=== PATIENT | male | born 1970 | race Hispanic/Latino ===

== ENCOUNTER 2019-04-21 23:29 | Emergency (ER) | payer OTHER ==
[2019-04-21 23:46] VITALS: BP 173/98
--- NOTE | 2019-04-22 00:25 | XRay Report ---
LEFT GREAT TOE 3 VIEWS INDICATION: dropped furniture pain and swelling. COMPARISON: No relevant prior imaging study available. FINDINGS: No acute fracture or dislocation is seen. No foreign bodies or soft tissue gas. IMPRESSION: 1. No acute skeletal abnormality. Signer Name: Edi Wade MD Signed: 04/22/2019 12:21 AM Workstation Name: [id number]
--- NOTE | 2019-04-22 01:52 | Emergency Department Report ---
ED Lower Extremity HPI - General Chief Complaint: Extremity Injury, Lower Stated Complaint: LEFT BIG TOE INJURY Time Seen by Provider: 04/22/19 01:47 Source: patient Mode of arrival: Ambulatory Limitations: No Limitations - History of Present Illness Initial Comments: Patient is a 48-year-old white male who presents to the ED with complaint of acute onset painful left great toe and foot pain after he accidentally dropped a heavy furniture onto his left foot. The patient states that the swelling and pain have worsened in the last the last 6 hours. Patient denies dizziness, numbness and tingling or weakness of her left foot, but again, follow her nausea and vomiting. MD Complaint: foot injury (left great toe), other (left great toe pain) -: Sudden, hour(s) (12) Injury: Foot: Left (left foot), Toes: Left (left great toe) Type of Injury: blunt (heavy furniture dropped onto the left foot) Place: home Severity: moderate Severity scale (0 -10): 6 Improves With: nothing Worsens With: weight bearing, movement, palpation Context: direct blow Associated Symptoms: swelling, able to partially bear weight. denies: snap/pop sensation, numbness, tingling, unable to bear weight - Related Data Previous Rx's Medication Instructions Recorded Last Taken Type Cyclobenzaprine [Flexeril] 10 mg PO Q8H PRN #12 tablet 04/22/19 Unknown Rx Ibuprofen [Motrin] 800 mg PO Q8HR PRN #20 tablet 04/22/19 Unknown Rx Allergies Allergy/AdvReac Type Severity Reaction Status Date / Time No Known Allergies Allergy Verified 04/21/19 23:37 ED Review of Systems ROS: Stated complaint: LEFT BIG TOE INJURY Other details as noted in HPI Constitutional: denies: chills, fever Eyes: denies: eye pain, eye discharge, vision change ENT: denies: ear pain, throat pain Respiratory: denies: cough, shortness of breath, wheezing Cardiovascular: denies: chest pain, palpitations Endocrine: no symptoms reported Gastrointestinal: denies: abdominal pain, nausea, diarrhea Genitourinary: denies: urgency, dysuria Musculoskeletal: joint swelling (left great toe), arthralgia (left great toe and foot). denies: back pain Skin: denies: rash, lesions Neurological: denies: headache, weakness, paresthesias Psychiatric: denies: anxiety, depression Hematological/Lymphatic: denies: easy bleeding, easy bruising ED Past Medical Hx - Past Medical History Previous Medical History?: No Hx Hypertension: No Hx Renal Disease: No - Surgical History Past Surgical History?: Yes Additional Surgical History: right knee. hernia - Social History Smoking Status: Never Smoker Substance Use Type: None - Medications Home Medications: Home Medications Medication Instructions Recorded Confirmed Last Taken Type Cyclobenzaprine [Flexeril] 10 mg PO Q8H PRN #12 tablet 04/22/19 Unknown Rx Ibuprofen [Motrin] 800 mg PO Q8HR PRN #20 tablet 04/22/19 Unknown Rx ED Physical Exam - General Limitations: No Limitations General appearance: alert, in no apparent distress - Head Head exam: Present: atraumatic, normocephalic - Eye Eye exam: Present: normal appearance, PERRL, EOMI. Absent: scleral icterus, conjunctival injection Pupils: Present: normal accommodation - ENT ENT exam: Present: normal exam, normal orophraynx, mucous membranes moist, TM's normal bilaterally, normal external ear exam - Neck Neck exam: Present: normal inspection, full ROM - Respiratory Respiratory exam: Present: normal lung sounds bilaterally. Absent: respiratory distress, wheezes, rales, rhonchi, chest wall tenderness, decreased breath sounds - Cardiovascular Cardiovascular Exam: Present: regular rate, normal rhythm, normal heart sounds. Absent: systolic murmur, diastolic murmur, rubs, gallop - GI/Abdominal GI/Abdominal exam: Present: soft, normal bowel sounds. Absent: tenderness, guarding, rebound, hyperactive bowel sounds, hypoactive bowel sounds, organomegaly - Rectal Rectal exam: Present: deferred - Extremities Exam Extremities exam: Present: normal inspection, tenderness (left great toe and foot), normal capillary refill, joint swelling (left great toe, left foot). Absent: pedal edema, calf tenderness - Back Exam Back exam: Present: normal inspection, full ROM. Absent: tenderness, CVA tenderness (R), CVA tenderness (L), muscle spasm, paraspinal tenderness, verteb ral tenderness - Neurological Exam Neurological exam: Present: alert, oriented X3, CN II-XII intact, normal gait, reflexes normal - Psychiatric Psychiatric exam: Present: normal affect, normal mood - Skin Skin exam: Present: warm, dry, intact, normal color. Absent: rash ED Course Vital Signs 04/21/19 23:45 Temperature 97.5 F L Pulse Rate 67 Respiratory 18 Rate Blood Pressure 173/98 [Right] O2 Sat by Pulse 100 Oximetry - Reevaluation(s) Reevaluation #1: 04/22/19 01:51 Patient is alert and oriented 3 and is not in any distress. Left great toe x- ray shows no acute fractures or subluxations. Patient was treated for pain in the ED and discharged home on pain medications and advised follow-up with his primary care physician in 5-7 days for reevaluation. Patient advised to return to the ED immediately if symptoms get worse. ED Lower Extremity MDM - Radiology Data Radiology results: report reviewed, image reviewed Left great toe x-ray: No acute fractures or subluxations - Medical Decision Making Patient is alert and oriented 3 and is not in any distress. Left great toe x- ray shows no acute fractures or subluxations. Patient was treated for pain in the ED and discharged home on pain medications and advised follow-up with his primary care physician in 5-7 days for reevaluation. Patient advised to return to the ED immediately if symptoms get worse. - Differential Diagnosis left foot contusion; sprained left great toe Critical care attestation.: If time is entered above; I have spent that time in minutes in the direct care of this critically ill patient, excluding procedure time. ED Disposition Clinical Impression: Sprain of left great toe Qualifiers: Encounter type: initial encounter Qualified Code(s): S93.502A - Unspecified sprain of left great toe, initial encounter Contusion of left foot including toes Qualifiers: Encounter type: initial encounter Qualified Code(s): S90.32XA - Contusion of left foot, initial encounter; S90.122A - Contusion of left lesser toe(s) without damage to nail, initial encounter Disposition: DC-01 TO HOME OR SELFCARE Is pt being admited?: No Does the pt Need Aspirin: No Condition: Stable Instructions: Foot Contusion (ED) Additional Instructions: Take medications with food, drink plenty of fluids and follow-up with your primary care physician in 5-7 days for reevaluation. Return to the ED immediately if symptoms get worse. Prescriptions: Cyclobenzaprine [Flexeril] 10 mg PO Q8H PRN #12 tablet PRN Reason: Muscle Spasm Ibuprofen [Motrin] 800 mg PO Q8HR PRN #20 tablet PRN Reason: Pain , Severe (7-10) Referrals: [facility] [Outside] - 3-5 Days Time of Disposition: 01:55 Print Language: [id number]
[2019-04-22] MEDS ORDERED: TYLENOL PO ONE (01:55)
== END 2019-04-22 02:30 | disposition home or self-care (01) ==
LOC: ED 23:29
DX: S93.502A Unspecified sprain of left great toe, initial encounter (principal); W22.03XA Walked into furniture, initial encounter; Y93.89 Activity, other specified; Y92.89 Other specified places as the place of occurrence of the external cause; Y99.8 Other external cause status
CPT/HCPCS: 99283